=== PATIENT | male | born 1995 | race Caucasian/White ===

== ENCOUNTER 2020-12-24 08:52 | Emergency (ER) | payer OTHER, BC ==
[~2020-12-24] VITALS: Ht 177.8 cm; Wt 77.1 kg
[2020-12-24] MEDS ORDERED: Pepcid20 MG PO (09:40)
[2020-12-24] MEDS ORDERED: BENADRYL25 MG PO (09:40)
== END 2020-12-24 10:00 | disposition home or self-care (01) ==
LOC: ER 08:52
DX: L23.7 Allergic contact dermatitis due to plants, except food (principal); Z88.2 Allergy status to sulfonamides; Z88.8 Allergy status to other drugs, medicaments and biological substances; Z88.1 Allergy status to other antibiotic agents
CPT/HCPCS: 96372; 99282; A9270; J1100